=== PATIENT | female | born 1970 | race African-American/Black ===

== ENCOUNTER 2023-12-06 10:26 | Emergency (ER) | payer OTHER ==
[~2023-12-06] VITALS: Ht 170.2 cm; Wt 86.8 kg
[2023-12-06 10:40] VITALS: O2SAT 100
[2023-12-06] MEDS ORDERED: IBUP-2029 MT (16:04)
[2023-12-06 16:44] VITALS: BP 142/77; PULSE 83; RESP 18; TEMP 98.6
== END 2023-12-06 17:39 | disposition home or self-care (01) ==
LOC: ER 10:26
DX: S83.512A Sprain of anterior cruciate ligament of left knee, initial encounter (principal); X58.XXXA Exposure to other specified factors, initial encounter; Y93.89 Activity, other specified; Y92.89 Other specified places as the place of occurrence of the external cause; Y99.8 Other external cause status
CPT/HCPCS: 73562; 73721; 99284